=== PATIENT | male | born 1950 | race Caucasian/White ===

== ENCOUNTER 2017-08-30 05:55 | Inpatient (IN) | payer MEDICARE ==
[~2017-08-30] VITALS: Ht 170.2 cm; Wt 90.6 kg
[2017-08-30] MEDS ORDERED: LACTATED RINGERS 1,000 ML IV SCH (06:44)
[2017-08-30] MEDS ORDERED: TADA20TA PO (06:49)
[2017-08-30 07:12] VITALS: BP 129/84
[2017-08-30] MEDS ORDERED: ATOR40TA78 PO (07:31)
[2017-08-30] MEDS ORDERED: BUPR300T49 PO (07:31)
[2017-08-30] MEDS ORDERED: OMEP40CA6 PO (07:31)
[2017-08-30] MEDS ORDERED: GABA300C10 PO (07:31)
[2017-08-30] MEDS ORDERED: LISINOPRIL PO (07:31)
[2017-08-30] MEDS ORDERED: METF500T4 PO (07:31)
[2017-08-30] MEDS ORDERED: POTA10TA17 PO (07:31)
[2017-08-30] MEDS ORDERED: FINA5TAB4 PO (07:31)
[2017-08-30] MEDS ORDERED: PHENYLEPHRINE 10 MG/ML ONE (07:35)
[2017-08-30] MEDS ORDERED: ONDANSETRON 2MG/ML, 2ML ONE (07:35)
[2017-08-30] MEDS ORDERED: PROPOFOL 10 MG/ML, 20ML ONE (07:35)
[2017-08-30] MEDS ORDERED: MIDAZOLAM 1 MG/ML, 2ML ONE (07:36)
[2017-08-30] MEDS ORDERED: FENTANYL PF 100 MCG/2ML ONE ×2 (07:36→09:39)
[2017-08-30 07:52] LABS: ALANINE AMINOTRANSFERASE 22 U/L (12-78); ALBUMIN 3.6 g/dL (3.4-5.0); ANION GAP 8 mmol/L (5-15); CALCIUM 8.8 mg/dL (8.5-10.1); CHLORIDE 108 mmol/L (98-107); CREATININE 0.99 mg/dL (0.7-1.3)
[2017-08-30 07:54] LABS: ALKALINE PHOSPHATASE 56 U/L (45-117); BILIRUBIN,TOTAL 0.6 mg/dL (0.2-1.0); TOTAL PROTEIN 7.3 g/dL (6.4-8.2)
[2017-08-30] MEDS ORDERED: DEXAMETHASONE 4 MG/ML, 1ML ONE (07:54)
[2017-08-30] MEDS ORDERED: METOCLOPRAMIDE 5 MG/ML, 2ML ONE ×2 (07:54)
[2017-08-30] MEDS ORDERED: CEFAZOLIN 1,000 MG ONE ×2 (07:56)
[2017-08-30] MEDS ORDERED: OPIUM/BELLADONNA SUPP.RECT 16.2-60 MG ONE (08:57)
[2017-08-30] MEDS ORDERED: HYDROmorphone 1 MG/ML, 1ML IV PRN (09:30)
[2017-08-30] MEDS ORDERED: OXYcodone 5 MG/5 ML ORAL.SOL UDC PO PRN (09:30)
[2017-08-30] MEDS ORDERED: LABETALOL 5MG/ML, 20ML IV PRN (09:30)
[2017-08-30] MEDS ORDERED: ONDANSETRON 2MG/ML, 2ML IVPush PRN (09:30)
[2017-08-30] MEDS ORDERED: MEPERIDINE/PF 25MG/0.5ML IVPush PRN (09:30)
[2017-08-30] MEDS ORDERED: MIDAZOLAM 1 MG/ML, 2ML IV PRN (09:30)
[2017-08-30] MEDS ORDERED: OXYcodone 5 MG/5 ML ORAL.SOL UDC ONE (09:39)
[2017-08-30] MEDS: FENTANYL PF 100 MCG/2ML IV PRN ×2 (09:42→10:05)
[2017-08-30] MEDS ORDERED: ONDANSETRON ODT 4 MG PO PRN (12:00)
[2017-08-30] MEDS ORDERED: ONDANSETRON 2MG/ML, 2ML IV PRN (12:00)
[2017-08-30 13:30] VITALS: BP 124/78
[2017-08-30] MEDS: metFORMIN 500 MG TABLET PO SCH ×2 (16:00→19:51)
[2017-08-30] MEDS: D5%-0.45NACL+KCL 20MEQ 1,000 ML IV SCH (17:47)
[2017-08-30 18:30] VITALS: BP 105/64
[2017-08-30] MEDS ORDERED: OXYcodone/APAP 5/325MG TABLET PO PRN (18:30)
[2017-08-30] MEDS ORDERED: ATORVASTATIN 40 MG TABLET PO SCH (21:00)
[2017-08-30] MEDS ORDERED: OPIUM/BELLADONNA SUPP.RECT 16.2-60 MG PR PRN (21:00)
[2017-08-31] MEDS: D5%-0.45NACL+KCL 20MEQ 1,000 ML IV SCH ×2 (01:14→08:40)
[2017-08-31 02:01] VITALS: BP 101/64
[2017-08-31] MEDS ORDERED: OMEPRAZOLE 20 MG CAPSULE.DR PO SCH (07:30)
[2017-08-31 08:28] VITALS: BP 133/78
[2017-08-31] MEDS: metFORMIN 500 MG TABLET PO SCH (08:39)
[2017-08-31] MEDS ORDERED: GABAPENTIN 300 MG CAPSULE PO SCH (09:00)
[2017-08-31] MEDS ORDERED: OXYC-302 PO (10:32)
== END 2017-08-31 10:40 | disposition home or self-care (01) | DRG 713 ==
LOC: OUT 05:55 → 4NOR 11:03 → OUT 22:59 → 4NOR 23:02 → DCLOUNGE 08-31 10:30
PROVIDERS: ADMIT Urology; ATTEND Urology
PROC: 0V508ZZ Destruction of Prostate, Via Natural or Artificial Opening Endoscopic (ICD-10-PCS; principal; 2017-08-30 07:30)
DX: N40.1 Benign prostatic hyperplasia with lower urinary tract symptoms (principal); N13.8 Other obstructive and reflux uropathy
CPT/HCPCS: 80053; 82962; 93005; J0690; J1100; J2250; J2405; J2704; J3010; J2370; J2765; J3480; J7120